=== PATIENT | female | born 1980 | race Hispanic/Latino ===

== ENCOUNTER 2022-05-18 14:55 | Outpatient (CLI) | payer OTHER | END 2022-05-18 14:56 | disposition home or self-care (01) | LOC: CSHMAMMO 14:55 | PROVIDERS: ATTEND Obstetrics & Gynecology | DX: Z12.31 Encounter for screening mammogram for malignant neoplasm of breast (principal) | CPT/HCPCS: 77063; 77067 ==

== ENCOUNTER 2025-05-26 15:09 | Outpatient (CLI) | payer OTHER | END 2025-05-26 15:10 | disposition home or self-care (01) | LOC: CSHMAMMO 15:09 | PROVIDERS: ATTEND Obstetrics & Gynecology | DX: Z12.31 Encounter for screening mammogram for malignant neoplasm of breast (principal) | CPT/HCPCS: 77063; 77067 ==